=== PATIENT | male | born 1985 | race Caucasian/White ===

== ENCOUNTER 2022-01-14 20:27 | Emergency (ER) | payer OTHER ==
[~2022-01-14] VITALS: Ht 167.6 cm; Wt 63.5 kg
[~2022-01-14 20:27] MED LIST: ANALPRAM HC 1%30 GM RC; CIPRO500 MG PO
[2022-01-14] MEDS ORDERED: CLINDAMYCIN HC300 MG PO (22:31)
== END 2022-01-14 22:38 | disposition home or self-care (01) ==
LOC: ER 20:27
DX: H60.01 Abscess of right external ear (principal)